=== PATIENT | female | born 1940 | race Caucasian/White ===

== ENCOUNTER 2020-01-18 12:21 | Emergency (ER) | payer MEDICARE, SELFPAY ==
[2020-01-18 12:29] VITALS: BP 176/74; PULSE 46; RESP 16; TEMP 36.6; O2SAT 97; BMI 28.9
--- NOTE | 2020-01-18 12:37 | XR_ITS ---
WS: [id number] [place] [id number] REASON FOR EXAM: fall FINDINGS: This study shows impacted surgical neck fracture of the proximal humerus. The remaining shaft of the humerus in the elbow were normal. XR/[place] [id number] IMPRESSION: Impacted fracture of the proximal right humerus surgical neck.
--- NOTE | 2020-01-18 13:38 | ED_ITS ---
Entered by Erin Miranda, acting as scribe for Jan 18, 2020 12:21 HPI - Fall General: Chief Complaint: Fall Stated Complaint: FALL WITH RIGHT SHOULDER PAIN Time Seen by Provider: 01/18/20 13:40 History of Present Illness: HPI Narrative: 79 yo female presents with fall. Pt states that she tripped over her sons dog. Pt states that she hit her head and her right arm. Pt states that she has some left hand pain as well. Associated symptoms-after fall: Denies abdominal pain, chest pain, confusion, difficulty walking, headache(s), hematuria, neck pain or vertigo Review of Systems Const: Denies: fever, chills, body aches, fatigue, malaise or night sweats Eyes: Denies: change in vision or blurry vision ENMT: Denies: throat pain, oral sores/lesions, dental pain, nasal discharge or nasal congestion Card: Denies: chest pain, palpitations, irregular heart rhythm, edema, syncope, shortness of breath on exertion, shortness of breath when lying down or leg pain with exertion Resp: Denies: shortness of breath, productive cough, non-productive cough or wheezing GI: Denies: abdominal pain, nausea, vomiting, vomiting blood, coffee grounds in vomit, difficulty swallowing, heartburn/indigestion, diarrhea, constipation, cramping, blood in stool or black tarry stool : Denies: flank pain, painful urination, urinary frequency, urinary urgency, urinary incontinence or blood in urine Musc: Reports: extremity pain, extremity swelling and joint swelling; Denies: neck pain, back pain or joint pain Skin/Breast: Denies: rash, itching or redness Neuro: Denies: headache, numbness in extremities, weakness in extremities, changes in sensation, lack of coordination, difficulty walking, frequent falls, dizziness, vertigo or confusion Psych: Denies: anxiety, depression, loss of interest, visual hallucinations, auditory hallucinations, suicidal ideation or homicidal ideation Endo: Denies: excessive urination, excessive thirst, tired all the time or cold intolerance Timur/Lymph: Denies: easy bruising, easy bleeding, petechiae, enlarged lymph nodes or tender lymph nodes PFSH ED PFSH: Medical History Bradycardia HTN (hypertension) Itching Skin rash Family History Other CAD (coronary artery disease) Diabetes Hypertension Stroke Social History Smoking and tobacco status: never smoked Alcohol intake: never Physical Exam Const: COMMON NORMALS: oriented x3 and alert GENERAL APPEARANCE: cooperative, comfortable, well kempt and well developed NUTRITIONAL APPEARANCE: not obese ORIENTATION/CONSCIOUSNESS: Yes oriented to person, Yes oriented to place and Yes oriented to time HENMT: COMMON NORMALS: normocephalic, head/scalp atraumatic, EAC's normal, TM's normal bilaterally, external nose normal, moist oral mucous membranes and oropharynx normal HEAD & SCALP: normocephalic and atraumatic NOSE: external nose normal EXTERNAL AUDITORY CANAL: EAC's normal TYMPANIC MEMBRANE: TM's normal bilaterally MOUTH: oral and palatal mucosa normal, lip normal and tongue normal THROAT: posterior oropharynx normal and tonsils normal Eye: COMMON NORMALS: PERRL, EOMs intact bilaterally, conjunctivae normal and no scleral icterus CONJUNCTIVA: Yes conjunctivae normal PUPIL: Yes PERRL Neck/C-Spine: COMMON NORMALS: full ROM, no lymphadenopathy, supple, no meningeal signs and thyroid normal THYROID: thyroid normal and asymmetrical Lymph: LYMPHATIC: no lymphadenopathy noted Resp: COMMON NORMALS: normal respiratory effort, no retractions, no use of accessory muscles and clear to auscultation bilaterally AUSCULTATION: clear to auscultation bilaterally Cardio: COMMON NORMALS: regular rate and regular rhythm RATE: regular rate RHYTHM: regular rhythm HEART SOUNDS: no murmurs GI: COMMON NORMALS: normal to inspection, nondistended, normoactive bowel sounds, soft to palpation and no hepatosplenomegaly PALPATION: Yes soft and Yes no hepatosplenomegaly : COMMON NORMALS: Yes no CVA tenderness BLADDER/KIDNEY EXAM: Yes no CVA tenderness Back/Pelvis: COMMON NORMALS: no CVA tenderness LUMBAR SPINE/LOWER BACK: Yes normal to inspection Extremity: COMMON NORMALS: no clubbing, cyanosis or edema, no calf tenderness and no pedal edema RIGHT UPPER EXTREMITY: Yes upper arm Right upper arm: Yes inspection and Yes palpation and Yes wrist LEFT UPPER EXTREMITY: Yes hand & digits OTHER: Neurovascular intact right upper arm pain with palpation of the proximal humerus with moderate amount of swelling consistent with proximal humerus fracture Neuro: COMMON NORMALS: oriented x3 SENSORIUM/ORIENTATION: Yes alert, Yes oriented to person, Yes oriented to place and Yes oriented to time MENINGEAL SIGNS: Yes no meningeal signs Psych: APPEARANCE: Yes well kempt Skin: COMMON NORMALS: no rashes or lesions noted and skin turgor normal GENERAL SKIN EXAM: no rashes or lesions noted and turgor normal Course ED course: Discussed diagnosis the patient. She has a nondisplaced proximal humerus fracture we will sling the arm pain control early follow-up with orthopedist at 7 to 10 days they will make further arrangements from there for definitive care. Vital Signs: Vital signs: Vital Signs Temperature 97.9 F 01/18/20 12:29 Pulse Rate 53 L 01/18/20 14:44 Respiratory Rate 17 01/18/20 14:44 Blood Pressure 176/74 01/18/20 12:29 Pulse Oximetry 97 01/18/20 14:44 Discharge Plan Discharge Patient Disposition: Home, Self-Care Clinical Impression: Fracture of proximal end of humerus Condition: Stable Prescriptions: New hydrocodone-acetaminophen 5-325 mg tablet 1 tab PO Q6H PRN (Reason: pain) Qty: 25 RF: 0 Zofran 4 mg tablet 4 mg PO Q6H PRN (Reason: nausea and vomiting) Qty: 15 RF: 0 No Action hydralazine 10 mg tablet 10 mg PO BID PRN (Reason: UNKNOWN) RF: 0 amlodipine 10 mg tablet 10 mg PO DAILY Qty: 90 RF: 2 spironolactone 25 mg tablet 25 mg PO DAILY RF: 0 Referrals: aTm Simpson DO [Physician] - (Right proximal humerus fracture nondisplaced) Discharge Diet: Usual diet Discharge Activity: Limit activity as instructed Discharge Date/Time: 01/18/20 14:45 Coding Level of Care Code ED Auto Body Straightener for Chg Fwd Exam Comprehensive The documentation recorded by the Ruben ronquillo Kialy, accurately reflects the service I personally performed and the decisions made by Chari pierre Curtis L, DO Jan 18, 2020 12:21
[2020-01-18 13:44] VITALS: RESP 16
[2020-01-18 13:54] VITALS: RESP 16; O2SAT 95
[2020-01-18] MEDS: morphine 4 mg/mL SDV 1 mL IVP (13:54)
[2020-01-18 14:44] VITALS: PULSE 53; RESP 17; O2SAT 97
--- NOTE | 2020-01-19 14:16 | DCPLANNER ---
works manager had message to schedule a follow up appointment for patient with ortho. works manager called ortho, spoke with Pat, gave clinic patients information. works manager was told that patients information would be printed and reviewed. Clinic will call gearcase assembler and patient with appointment information.
--- NOTE | 2020-01-20 15:41 | DCPLANNER ---
Patient has a follow up appointment scheduled for Tuesday, January 21, 2020 at 10:00. Clinic will call patient with appointment information.
--- NOTE | 2020-01-22 10:13 | DCPLANNER ---
Patient did attend appointment scheduled for 01.21.20 [address] [facility] with Dr. Pillai.
== END 2020-01-18 14:45 | disposition home or self-care (01) ==
PROVIDERS: Emergency Provider Family Medicine; Family Provider Family Medicine; PCP Family Medicine
DX: S42.211A Unspecified displaced fracture of surgical neck of right humerus, initial encounter for closed fracture (principal); I10 Essential (primary) hypertension; W01.0XXA Fall on same level from slipping, tripping and stumbling without subsequent striking against object, initial encounter
CPT/HCPCS: 12345; 73060; 96374; 96375; 99282; 99283; J2270

== ENCOUNTER 2020-01-21 13:23 | Outpatient (CLI) | payer MEDICARE, SELFPAY | END 2020-01-21 13:24 | disposition home or self-care (01) | LOC: SPT 13:23 | PROVIDERS: Family Provider Family Medicine; PCP Family Medicine; Visit Provider Specialist | DX: Z46.89 Encounter for fitting and adjustment of other specified devices (principal); S42.294D Other nondisplaced fracture of upper end of right humerus, subsequent encounter for fracture with routine healing; X58.XXXD Exposure to other specified factors, subsequent encounter | CPT/HCPCS: L3670 ==

== ENCOUNTER 2020-05-09 10:40 | Emergency (ER) | payer MEDICARE, SELFPAY ==
[2020-05-09 10:46] VITALS: BP 168/71; PULSE 50; RESP 18; TEMP 36.4; O2SAT 99; BMI 29.1
--- NOTE | 2020-05-09 11:04 | W.ED.FALL ---
HPI - Fall General: Chief Complaint: Fall Stated Complaint: FALL Time Seen by Provider: 05/09/20 10:47 History of Present Illness: HPI Narrative: Patient tripped and fell working outdoors. She struck the top of her head and has a partial-thickness frontal scalp laceration. She also has a skin tear involving most of the dorsal aspect of her right arm. Also consciousness. Patient denies any other injury. complaint: fall Fall from: standing Fall witnessed: no Place fall occurred: home Loss of consciousness: None Prolonged down time: no Symptoms prior to fall: none Context: tripped/slipped Location of injury: head Location of injury - extremities: Right: forearm Associated symptoms-after fall: Reports no associated symptoms Review of Systems General: Reports: 10 or more systems reviewed and unremarkable except in HPI and below PFSH ED PFSH: Medical History Bradycardia HTN (hypertension) Itching Skin rash Family History Other CAD (coronary artery disease) Diabetes Hypertension Stroke Social History Smoking and tobacco status: never smoked Alcohol intake: never Physical Exam Const: COMMON NORMALS: no acute distress, average body habitus, alert and well nourished EXAM LIMITATIONS: altered mental status GENERAL APPEARANCE: lethargic ORIENTATION/CONSCIOUSNESS: Yes lethargic HENMT: COMMON NORMALS: normocephalic, hearing grossly normal bilaterally, external ears normal, EAC's normal, TM's normal bilaterally, Normal external nose present, Normal nasal mucous membranes and turbinates present, moist oral mucous membranes, oropharynx normal, dentition normal and gingiva normal HEAD & SCALP: normocephalic and laceration (frontal scalp) NOSE: Normal external nose present and Normal nasal mucous membranes and turbinates present EXTERNAL EAR: Yes external ears normal EXTERNAL AUDITORY CANAL: EAC's normal TYMPANIC MEMBRANE: TM's normal bilaterally Eye: COMMON NORMALS: Equal, round and reactive pupils present, EOMs intact bilaterally, conjunctivae normal, no scleral icterus, no papilledema, normal visual sweeney by confrontation and fundi normal bilaterally CONJUNCTIVA: Yes conjunctivae normal PUPIL: Yes Equal, round and reactive pupils present DIRECT OPHTHALMOSCOPY: Yes no papilledema and Yes fundi normal bilaterally Neck/C-Spine: COMMON NORMALS: full ROM, no lymphadenopathy, supple, no meningeal signs, no JVD, Thyroid normal and No carotid bruits THYROID: Thyroid normal Chest: COMMONS NORMALS: normal inspection of the chest and normal palpation of entire chest wall Resp: COMMON NORMALS: normal respiratory effort, No retractions, No use of accessory muscles, clear to auscultation bilaterally and percussion normal AUSCULTATION: clear to auscultation bilaterally PERCUSSION: percussion normal Cardio: COMMON NORMALS: no JVD, regular rate, regular rhythm, S1 normal heart sound present, S2 normal heart sound present, No gallops present (Cardio), No clicks present (Cardio), No murmurs present (Cardio), No rub (Cardio) and Peripheral pulses 2+ throughout RATE: regular rate RHYTHM: regular rhythm HEART SOUNDS: S1 normal heart sound present and S2 normal heart sound present PERIPHERAL PULSES: Peripheral pulses 2+ throughout GI: COMMON NORMALS: Normal to inspection, nondistended, normoactive bowel sounds present, Soft to palpation, non-tender, No hepatosplenomegaly present, no masses and no bruits PALPATION: Yes Soft to palpation and Yes No hepatosplenomegaly present : COMMON NORMALS: Yes normal external appearance Back/Pelvis: COMMON NORMALS: thoracic and lumbar spine normal to inspection, no thoracic nor lumbar tenderness, thoraco-lumbar ROM normal and straight leg raise negative bilaterally Extremity: COMMON NORMALS: normal to inspection, full ROM, capillary refill normal, no joint enlargement, no clubbing, cyanosis or edema, no calf tenderness and no pedal edema Neuro: SENSORIUM/ORIENTATION: Yes alert, Yes lethargic and Yes somnolent MENINGEAL SIGNS: Yes no meningeal signs Skin: COMMON NORMALS: no rashes or lesions noted, no wounds, no jaundice and no mottling GENERAL SKIN EXAM: no rashes or lesions noted Procedures Laceration Laceration 1: Site: scalp Size (cm): 3 Description: linear Depth: simple, single layer Skin layer closed with: other (four navi) Course Vital Signs: Vital signs: Vital Signs Temperature 97.5 F L 05/09/20 10:46 Pulse Rate 50 L 05/09/20 10:46 Respiratory Rate 18 05/09/20 10:46 Blood Pressure 168/71 05/09/20 10:46 Pulse Oximetry 99 05/09/20 10:46 MDM - Fall MDM Narrative: Medical decision making narrative: Partial-thickness laceration to the top of the scalp was repaired with surgical navi. The edges of the devitalized tissue of the skin tear the patient's right arm Was removed with sterile scissors. Steri-Strips and sterile dressing are applied. Discharge Plan Discharge Patient Disposition: Home, Self-Care Clinical Impression: Fall Qualifiers: Encounter type: initial encounter Qualified Code(s): W19.XXXA - Unspecified fall, initial encounter Laceration of scalp Qualifiers: Encounter type: initial encounter Qualified Code(s): S01.01XA - Laceration without foreign body of scalp, initial encounter Skin tear of right forearm without complication Qualifiers: Encounter type: initial encounter Qualified Code(s): S51.811A - Laceration without foreign body of right forearm, initial encounter Condition: Stable Prescriptions: New Bactrim DS 800-160 mg tablet 1 tab PO BID 10 Days Qty: 20 RF: 0 No Action hydralazine 10 mg tablet 10 mg PO BID PRN (Reason: UNKNOWN) RF: 0 amlodipine 10 mg tablet 10 mg PO DAILY Qty: 90 RF: 2 (DME) Shoulder Immobilizer Qty: 1 RF: 0 spironolactone 25 mg tablet 25 mg PO DAILY RF: 0 hydrocodone-acetaminophen 5-325 mg tablet 1 tab PO Q6H PRN (Reason: pain) Qty: 25 RF: 0 Zofran 4 mg tablet 4 mg PO Q6H PRN (Reason: nausea and vomiting) Qty: 15 RF: 0 Discharge Orders: Discharge Order (Routine); Ordered 05/09/20 Ordered By: Rigoberto Delgado Referrals: Vashti Osorio MD [Primary Care Provider] - Coding Level of Care Code ED Headmaster/Mistress for Chg Fwd Exam Comprehensive
== END 2020-05-09 11:41 | disposition home or self-care (01) ==
LOC: ER 11:20
PROVIDERS: Emergency Provider Family Medicine; Family Provider Family Medicine; PCP Family Medicine
DX: S01.01XA Laceration without foreign body of scalp, initial encounter (principal); S51.811A Laceration without foreign body of right forearm, initial encounter; W01.0XXA Fall on same level from slipping, tripping and stumbling without subsequent striking against object, initial encounter; I10 Essential (primary) hypertension
CPT/HCPCS: 12002; 12345; 99281; 99282

== ENCOUNTER → 2020-06-07 13:17 | Outpatient (BNVA) | payer MEDICARE, SELFPAY | PROVIDERS: Family Provider Family Medicine; PCP Family Medicine; Visit Provider Internal Medicine | DX: Z11.59 Encounter for screening for other viral diseases (principal) | CPT/HCPCS: 87635 ==

== ENCOUNTER 2020-06-09 13:12 | Observation (INO) | payer MEDICARE, SELFPAY ==
[2020-06-08 11:29] VITALS: BMI 28.2
[2020-06-09] VITALS (21 sets, daily range): BP systolic 138–178; BP diastolic 60–89; PULSE 51–66; RESP 14–21; TEMP 36.3–36.8; O2SAT 92–100
--- NOTE | 2020-06-09 | SCC_ITS ---
Procedure Done: Dual-chamber pacemaker implantation 59.3 seconds of fluoroscopic guidance, for a cumulative dose of 8.26 mGy, was provided to Dr. Oleary by the radiology department. C-arm images of the chest were saved for the patient's permanent record. [facility]
--- NOTE | 2020-06-09 09:09 | XR_ITS ---
WS: [id number] CHEST XRAY TECHNIQUE: Portable chest. CLINICAL INFORMATION: Preop for pacemaker implantation COMPARISON: None. FINDINGS: Heart: Normal cardiac silhouette. Lungs: Lungs are clear. No consolidation or pleural effusion. Mild chronic emphysematous changes. Bones: Thoracolumbar curve convex right. XR/XR chest 1V portable [id number] IMPRESSION: Chest unremarkable for preoperative purposes
--- NOTE | 2020-06-09 09:32 | ANES.PREANE2 ---
Pre-Anesthetic Assessment Pre-Anesthetic Assessment: Height/Weight: Height 1.68 m Weight 79.379 kg Temp Pulse Resp BP Pulse Ox 97.4 F L 51 L 18 158/77 97 06/09/20 09:17 06/09/20 09:17 06/09/20 09:17 06/09/20 09:17 06/09/20 09:17 Proposed Procedure: Operation Date: 06/09/20 10:20 Proposed Procedures p Pacemaker Insertion(Not Applicable) - Pascual Oleary MD Last intake: Intake Last Liquid Date 06/08/20 Last Liquid Time 19:00 Last Solid Date 06/08/20 Last Solid Time 19:00 Social: Social History: No alcohol and No tobacco Exam: Pre-Anes Outpt Exam: alert, oriented x 3, clear to auscultation bilaterally and regular rate & rhythm Airway: Submandibular: WNL Cervical ROM: WNL MP: 1 Dentition: Partials (upper) History/ROS: No significant history except as noted Pulmonary: Pulmonary: LUKE CV/HEM: CV/HEM: Arrythmia and HTN : : None reported Hepatic: Hepatic: None reported GI: GI: GERD (occ) Metabolic: Metabolic: Morbid obesity Musc/skel: Musc/skel: OA/DJD Neuropsych: Neuropsych: None reported Anesthetic Plan: ASA status: 3 Anesthesia: Anesthesia Evaluation and MAC Risk of > 500 ml blood loss (7ml/kg in children): No PFSH Anesthesia PFSH: Medical History Bradycardia HTN (hypertension) Itching Skin rash Family History Other CAD (coronary artery disease) Diabetes Hypertension Stroke Social History Smoking and tobacco status: never smoked Alcohol intake: never Data Anesthesia Cardiac Studies: No Data to Display
[2020-06-09] MEDS: sodium chloride 0.9% 1,000 ML 30 ML IV (09:43)
[2020-06-09 10:04] LABS: Add Urine Culture? No; Add Urine Microscopic? YES; Bacteria Urine 1+; Bilirubin Urine Neg (NEGATIVE); Blood Urine Neg (Negative); Glucose Urine UA Norm (Normal); Ketones Urine Negative (Negative); Leukocyte Esterase Urine Trace (Negative); Mucus Urine TRACE; Nitrate Urine Negative (Negative); Protein Urine Neg (Negative); RBC Urine RARE /hpf (0-2); Specific Gravity, Urine 1.015 (1.005-1.030); Squamous Epithelial Cell Urine 0-4 (0-5); Urine Appearance Clear (CLEAR); Urine Color Yellow (Yellow); Urobilinogen Urine Norm (Negative)
[2020-06-09 10:12] LABS: Basophils # 0.1 10^3/uL (0.0-0.1); Basophils % 0.9 %; Eosinophils # 0.5 10^3/uL (0.0-0.8); Eosinophils % 6.4 %; Hematocrit 42.1 % (37.0-47.0); Hemoglobin 13.7 g/dL (11.5-15.3); Lymphocytes # 1.5 10^3/uL (0.8-4.8); Lymphocytes % 20.3 %; Mean Corpuscular HGB Conc 32.5 g/dL (30.0-36.0); Mean Corpuscular Hemoglobin 30.9 pg (28.0-34.0); Mean Corpuscular Volume 94.8 fL (81-99); Mean Platelet Volume 9.3 fL (7.4-10.4); Monocytes # 0.4 10^3/uL (0.2-0.9); Monocytes % 5.7 %; Neutrophils # 4.99 10^3/uL (1.8-7.7); Neutrophils % 66.3 %; Nucleated Red Blood Cells % 0 %; Platelet Count 206 10^3/cmm (130-400); Red Blood Count 4.44 10^6/uL (4.1-5.3); White Blood Count 7.5 10^3/uL (4.0-10.0)
--- NOTE | 2020-06-09 10:12 | SC_ITS ---
WS: [id number] INTRAOPERATIVE TECHNIQUE: 2 Spot fluoroscopic images for intraoperative purposes. FLUOROSCOPY TIME: 59.3 seconds CLINICAL INFORMATION: intra-op COMPARISON: None. FINDINGS: Fluoroscopy used for cardiac intervention SC/C-arm FL for Pacemaker IMPRESSION: Images obtained for intraoperative purposes.
[2020-06-09 10:17] LABS: INR 0.94 (0.8-1.2)
[2020-06-09 10:23] LABS: Anion Gap 19.2 (5-19); Blood Urea Nitrogen 26 mg/dL (8-23); Calcium 9.9 mg/dL (8.5-10.5); Carbon Dioxide 21 mmol/L (22-29); Chloride 105 mmol/L (98-107); Glucose 96 mg/dL (65-115); Osmolality Calculated 289 mOsm/kg (285-295); Potassium 4.2 mmol/L (3.5-5.1); Sodium 141 mmol/L (136-145)
--- NOTE | 2020-06-09 10:35 | PM.OPSURHP ---
Providers/Chief Complaint Admitting Physician: Anirudh Primary Care Provider: Vashti Osorio MD Chief Complaint: AV block History of Present Illness Lisa Vargas is a 79 year old female who was referred to our service by Dr. Cat for planned dual-chamber pacemaker implantation for profound, highly symptomatic, and refractory bradycardia with documented heart rates into the upper 20s as well as periods of prolonged pauses. She has had a 21-day event recorder in place which has documented numerous events. She was last seen by Dr. Cat on May 24. She has a history of progressive shortness of breath intermittently as well as episodes of falling, which may be presyncopal events. Review of Systems Const: Denies: fever(s), chills, change in appetite, change in weight, fatigue or night sweats Eyes: Denies: change in vision or blurry vision ENMT: Denies: odynophagia or hoarseness Card: Denies: chest pain, palpitations, irregular heart rhythm or edema Resp: Denies: dyspnea or productive cough GI: Denies: abdominal pain, nausea, vomiting, dysphagia, heartburn or change in bowel habits : Denies: dysuria, urinary frequency, urinary urgency or urinary hesitancy Musc: Denies: extremity pain or extremity swelling Skin/Breast: Denies: rash Neuro: Reports: weakness in extremities, frequent falls and dizziness; Denies: headache(s), numbness in extremities or sensory changes Psych: Denies: anxiety, depression or change in appetite Endo: Denies: polyuria, polydipsia or cold intolerance Timur/Lymph: Denies: easy bruising, easy bleeding, petechiae or enlarged lymph nodes Medications/Allergies Home Medications Medication Instructions Recorded Confirmed Last Taken Type amlodipine 10 mg tablet 10 mg PO DAILY #90 tab 11/26/19 06/09/20 06/09/20 Rx hydralazine 10 mg tablet 10 mg PO BID PRN 11/26/19 06/09/20 06/09/20 History spironolactone 25 mg PO DAILY 01/18/20 06/09/20 01/18/20 History Allergies Allergy/AdvReac Type Severity Reaction Status Date / Time latex Allergy ALGY-Redness Verified 06/08/20 11:26 of Skin PFSH PFSH: Medical History Bradycardia HTN (hypertension) Itching Skin rash Family History Other CAD (coronary artery disease) Diabetes Hypertension Stroke Social History Smoking and tobacco status: never smoked Alcohol intake: never Vital Signs Vitals Signs: Last Vital Signs Temp 97.4 F L 06/09/20 09:17 Pulse 51 L 06/09/20 09:17 Resp 18 06/09/20 09:17 BP 158/77 06/09/20 09:17 Pulse Ox 97 06/09/20 09:17 Weight: Weight last 48 hrs Weight 175 lb Physical Exam Neck/C-Spine: COMMON NORMALS: full ROM, no lymphadenopathy and no JVD Chest: COMMONS NORMALS: normal inspection of the chest (External rhythm monitoring device was removed. Skin beneath is intact without reaction.) Resp: COMMON NORMALS: normal respiratory effort and No use of accessory muscles EFFORT & INSPECTION: Yes able to speak in complete sentences and Yes symmetric chest movement AUSCULTATION: clear to auscultation bilaterally Cardio: COMMON NORMALS: S1 normal heart sound present, No gallops present (Cardio) and No murmurs present (Cardio); negative for regular rate RATE: bradycardic PERIPHERAL PULSES: radial pulses present positive bilateral 2+ Extremity: COMMON NORMALS: no clubbing, cyanosis or edema A&P Assessment and plan (1) Bradycardia: Highly symptomatic and refractory bradycardia consistent with sick sinus syndrome. Dual-chamber pacemaker implantation been recommended by Dr. Cat. Rationale was carefully discussed with Ms. Vargas and her . Details the risk of the procedure carefully and frankly reviewed. Potential risk for infection, major bleeding, migration of the leads requiring revision, pneumothorax requiring chest tube, and prolonged need for monitoring were frankly discussed. Proper consents have been provided for review and signature. Status: Acute Coding Level of Care Code Acute Nursing Agency Manager for [facility] F[facility] Diagnoses Bradycardia R00.1
[2020-06-09] MEDS: ceFAZolin 1,000 mg SDV 1000 MG IRRIGATION (11:52)
[2020-06-09] MEDS: lidocaine 1% INJ 20 mL SUBCUT (12:14)
--- NOTE | 2020-06-09 12:52 | PM.OP ---
Operative Report Date of procedure: June 09, 2020 Pre-op Diagnosis: Highly symptomatic and refractory bradycardia; sick sinus syndrome Post-op diagnosis: same Procedure Done: Dual-chamber pacemaker implantation Pathology: none sent Surgeon: Pascual Oleary Anesthesia: MAC and Local (10 cc 1% lidocaine infiltrated locally) Complications: None: Post procedure chest x-ray pending Condition: stable Disposition: PACU Brief History: 79-year-old female with refractory bradycardia and history of possible syncope with frequent falls. Dr. Cat is recommended dual-chamber pacemaker implantation. Details risk procedure carefully and frankly discussed. Proper consents have been reviewed and signed. Procedure: Procedure: Ms. Vargas was taken to the OR suite and placed in the supine position over a shoulder roll. She received conscious sedation with continuous anesthesia monitoring by. Her entire chest was sterilely prepped and draped. 1% lidocaine was infiltrated in the left subclavicular region. While in Trendelenburg position, utilizing modified seldinger technique, 2 guidewires were placed in the left subclavian vein. This was confirmed in position by fluoroscopy. Next, after infiltration with lidocaine, a subcutaneous pocket was created beginning from the exit point of the guidewire and extending laterally and inferiorly. Cautery was utilized to create the pocket just above the pectoralis musculature. Hemostasis was confirmed. An antibiotic-soaked sponge was placed in the wound. A dilator and tear-away sheath was placed over the first guidewire and advanced under fluoroscopy. Guidewire and dilator were removed. Next using a combination of curved and straight stylettes, the right ventricular lead was placed in position by fluoroscopy. The distal screw was extended. Interrogation was then performed confirming appropriate parameters. The tear-away sheath was then removed and the ventricular lead was sewn to the floor of the subcutaneous pocket. In a similar fashion dilator and tear-away sheath was placed over the 2nd guide wire and advanced under fluoroscopy. Guidewire and dilator were removed. Straight and curved stylettes were used to position the right atrial lead with fluoroscopy. Distal screw was extended. Interrogation was then performed. Tear-away sheath was then removed. Atrial lead was secured to the floor of the subcutaneous pocket. Pocket was irrigated with antibiotic solution and hemostasis again confirmed. Pacing generator was brought into the field, and after confirmation of hemostasis in the subcutaneous pocket, the leads were connected to the generator with appropriate capture. The entire system was interrogated by fluoroscopy. Leads and generator were secured in the pocket. Sponge and needle count was correct. The wound was then closed in 2 layers of 3-0 Vicryl suture. Skin was reapproximated in a subcuticular manner with 4-0 Monocryl suture. A pressure dressing was applied. The left arm was placed in a sling. The patient had equal breath sounds bilaterally. She was then transferred to the PACU, where chest x-ray is currently pending. I did auto travel counselor with her at the completion of the procedure. Following are the specifics of this system: Right ventricular lead is 52 cm and model 5076. Serial number [id number] Right atrial lead is 45 cm and is model 5076. Serial number [id number]. Ventricular lead had sensing of 13.6 mV with an impedance of 931 ohms. Threshold was 0.5 V Atrial lead had sensing of 1.6 mV with an impedance of 456 ohms. Threshold was 0.75 V. [employer] generator: Model # [id number] Serial #[id number]
--- NOTE | 2020-06-09 13:30 | PC.NURSE ---
Patient arrived to floor from PACU A&O. Patient ambulated to bed from [facility] with SBA. Patient denies any pain at this time. Immobilizer in place, incision asymptomatic. Patient oriented to room and call light. Nurse to continue to monitor.
[2020-06-09] MEDS: sodium chloride 0.9% 1,000 ML 75 ML IV (13:44)
--- NOTE | 2020-06-09 14:00 | XRR_ITS ---
PROCEDURE INFORMATION: Exam: XR Chest, 1 View Exam date and time: 06/09/2020 2:06 PM Age: 79 years old Clinical indication: Device placement; Cardiac pacemaker lead placement or adjustment; Prior surgery; Surgery date: Post-operative (0-2 days); Additional info: Post op pacemaker TECHNIQUE: Imaging protocol: XR of the chest Views: 1 view. COMPARISON: CR XR chest 1V portable [id number] 06/09/2020 9:27 AM FINDINGS: Tubes, catheters and devices: There is a dual lead pacemaker. The leads are intact where visualized. Lungs: No acute pneumonia or edema. Pleural space: Unremarkable. No pleural effusion. No pneumothorax. Heart/Mediastinum: Unremarkable. No cardiomegaly. Bones/joints: Unremarkable. XR/XR chest 1V portable [id number] IMPRESSION: There are no acute concerning abnormalities.
[2020-06-10 00:18] VITALS: BP 155/55; PULSE 60; RESP 19; TEMP 37.1; O2SAT 95
[2020-06-10 04:00] VITALS: BP 164/65; PULSE 60; RESP 17; TEMP 36.8; O2SAT 98
[2020-06-10] MEDS: sodium chloride 0.9% 1,000 ML 75 ML IV (04:29)
--- NOTE | 2020-06-10 06:00 | ECG_ITS ---
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 Measurements Intervals [place] Rate: 60 P: 142 SC: 225 QRS: -21 QRSD: 113 T: 69 QT: 398 QTc: 398 Interpretive Statements ELECTRONIC ATRIAL PACEMAKER LOW QRS VOLTAGE IN PRECORDIAL LEADS [QRS DEFLECTION < 1.0 mV IN CHEST LEADS] PATTERN CONSISTENT WITH PULMONARY DISEASE MODERATE INTRAVENTRICULAR CONDUCTION DELAY [105+ ms QRS DURATION, 80+ ms Q/S IN V1/V2, NO Q AND 60+ ms R IN I/aVL/V5/V6] No previous ECG available for comparison Electronically Signed On 06-11-2020 16:09:39 CDT by Nathan Patterson M.D. [id number]
--- NOTE | 2020-06-10 06:00 | XR_ITS ---
WS: [id number] CHEST XRAY TECHNIQUE: Portable chest. CLINICAL INFORMATION: Post permanent pacemaker placement; visualize lead tip COMPARISON: June 09, 2020 FINDINGS: Heart: Normal cardiac silhouette. Cardiac pacer. Lungs: Lungs are clear. No consolidation or pleural effusion. Mild chronic emphysematous changes. Bones: Normal visualized bony structures. XR/XR chest 1V [id number] IMPRESSION: Cardiac pacer. No pneumothorax. No acute chest findings.
[2020-06-10 07:59] VITALS: BP 157/68; PULSE 60; RESP 20; TEMP 36.7; O2SAT 98
--- NOTE | 2020-06-10 09:40 | PM.DCS ---
Discharge Providers Date of Admission: 06/09/20 13:12 Date of Discharge: June 10, 2020 Attending Provider at Admission: Pascual Oleary MD Attending Provider at Discharge: Pascual Oleary MD Primary Care Provider: Vashti Osorio MD Diagnoses at Discharge Discharge Diagnosis (1) Bradycardia: Status: Acute Reason for Visit Reason for Visit: AV block Hospital Course Hospital Course: Ms. Vargas is a 80-year-old female admitted for highly symptomatic and refractory bradycardia with documented prolonged sinus pauses consistent with sick sinus syndrome. She was carefully evaluated by cardiology and referred to consider for dual-chamber pacemaker implantation. She was elected admitted yesterday on June 09 underwent dual-chamber pacemaker implantation. Postop day, she is convalesced in cardiac stepdown unit where she remained stable. Device interrogation this morning revealed appropriate functioning. Surgical site is clean and dry. Minimal swelling. Minimal discomfort. She is eager for discharge to home. She be discharged today in stable condition. Physical Exam Chest: COMMONS NORMALS: normal inspection of the chest (Incision line clean and dry. Minimal tenderness. No ecchymosis or swelling.) Discharge Data Data Completed and Pending: Completed Studies During Hospitalization Category Date Time Status CXRP [XR chest 1V portable [id number]] R outine Exams 06/09/20 14:00 Completed XR chest 1V [id number] Routine Exams 06/10/20 06:00 Completed XR chest 1V klaudia ble [id number] Routine Exams 06/09/20 09:09 Completed Labs from last 24 hours 06/09/20 06/09/20 06/09/20 10:02 10:02 10:02 WBC 7.5 RBC 4.44 Hgb 13.7 Hct 42.1 MCV 94.8 MCH 30.9 MCHC 32.5 RDW 13.0 Plt Count 206 MPV 9.3 Neut % (Auto) 66.3 Lymph % (Auto) 20.3 [place] % (Auto) 5.7 Eos % (Auto) 6.4 Baso % (Auto) 0.9 Neut # (Auto) 4.99 Lymph # (Auto) 1.5 [place] # (Auto) 0.4 Eos # (Auto) 0.5 Baso # (Auto) 0.1 Nucleated RBC % (a uto) 0 Nucleated RBCs # 0.0 PT 12.90 INR 0.94 Sodium 141 Potassium 4.2 Chloride 105 Carbon Dioxide 21 L Anion Gap 19.2 H BUN 26 H Creatinine 1.0 H GFR Calculation Not Reportable Glucose 96 Calculated Osmolal ity 289 Calcium 9.9 Urine Color Urine Appearance Urine pH Ur Specific Gravit y Urine Protein Urine Glucose (UA) Urine Ketones Urine Blood Urine Nitrate Urine Bilirubin Urine Urobilinogen Ur Leukocyte Kymberly ase Urine RBC Urine WBC Ur Squamous Epith Cells Amorphous Sediment Urine Bacteria Urine Mucus 06/09/20 09:24 WBC RBC Hgb Hct MCV MCH MCHC RDW Plt Count MPV Neut % (Auto) Lymph % (Auto) [place] % (Auto) Eos % (Auto) Baso % (Auto) Neut # (Auto) Lymph # (Auto) [place] # (Auto) Eos # (Auto) Baso # (Auto) Nucleated RBC % (a uto) Nucleated RBCs # PT INR Sodium Potassium Chloride Carbon Dioxide Anion Gap BUN Creatinine GFR Calculation Glucose Calculated Osmolal ity Calcium Urine Color Yellow Urine Appearance Clear Urine pH 6.0 Ur Specific Gravit y 1.015 Urine Protein Neg Urine Glucose (UA) Norm Urine Ketones Negative Urine Blood Neg Urine Nitrate Negative Urine Bilirubin Neg Urine Urobilinogen Norm Ur Leukocyte Kymberly ase Trace H Urine RBC Rare Urine WBC 5-10 H Ur Squamous Epith Cells 0-4 H Amorphous Sediment Not Reportable Urine Bacteria 1+ H Urine Mucus Trace Vitals: Last Vital Signs Temp 98.0 F 06/10/20 07:59 Pulse 60 06/10/20 07:59 Resp 20 H 06/10/20 07:59 BP 157/68 06/10/20 07:59 Pulse Ox 98 06/10/20 07:59 Discharge Plan Discharge Patient Disposition: Home Condition: Stable Prescriptions: New hydrocodone-acetaminophen 5-325 mg Tablet 1 tab PO Q6H PRN (Reason: Moderate Pain) Qty: 10 RF: 0 Continued hydralazine 10 mg tablet 10 mg PO BID PRN (Reason: UNKNOWN) RF: 0 amlodipine 10 mg tablet 10 mg PO DAILY Qty: 90 RF: 2 spironolactone 25 mg tablet 25 mg PO DAILY RF: 0 Discharge Orders: Discharge Order (Routine); Ordered 06/10/20 Ordered By: Pascual Oleary Referrals: [facility] [Provider Group] - 06/18/20 (Pacemaker clinic) Discharge Diet: Usual diet Discharge Activity: Limit activity as instructed Activity Restrictions/Additional Instructions: May remove bandage in 2 days May begin daily showers in 2 days No swimming or tub baths x 2 weeks No ointments on incision Report drainage, redness, heat, increased pain, or swelling to clinic Do not lift left hand above eye level for 5 days Discharge Attestations Time Spent in Discharge Care*: less than 30 min Specific Discharge Activities: Specific discharge activities: educating patient, discussing with case worker/social workers/dc planners, documenting/other paperwork and evaluating patient/reviewing data Status at Discharge: Cognitive status at discharge: cognitively intact, Functional status at discharge: independent ambulation Overall status at discharge: patient is back to baseline Quality Metrics Clinical Quality Measures During this hospital stay, did patient experience: None Coding Level of Care Code Acute Taping Machine Operator for Anna Howe Diagnoses Bradycardia R00.1
--- NOTE | 2020-06-10 09:43 | ANE.PACU2 ---
Inpatient post-anesthesia follow up: Airway intact: Yes Vital signs: Temperature 98.0 F Pulse Rate 60 Respiratory Rate 20 Blood Pressure 157/68 Pulse Oximetry 98 Oxygen Delivery Me thod [ Room Air Current Rate & Del karyna] Oxygen Delivery Me thod Room Air Oxygen Flow Rate Fraction of Inspir ed Oxygen Hydration adequate: Yes Nausea and vomiting: No Pain level: 1 Mental status: Baseline
[2020-06-10 09:58] VITALS: BP 157/68; PULSE 60; RESP 20; TEMP 36.7; O2SAT 98
--- NOTE | 2020-06-10 10:52 | PC.NURSE ---
Patient discharged home at this time. Discharge instructions provided and explained to patient. Patient verbalizes understanding of all restrictions post pacemaker placement. IV discontinued cath intact min bleeding noted dressing applied patient educated on s/s of infection patient verbalized understanding. patient assisted to wheel chair and accompanied by staff to private vehicle all belongings and discharge instructions in hands. patient alert, oriented and in stable condition.
== END 2020-06-10 10:45 | disposition home or self-care (01) ==
LOC: CSU 13:31
PROVIDERS: Admitting Provider Thoracic Surgery (Cardiothoracic Vascular Surgery); PCP Family Medicine; Visit Provider Thoracic Surgery (Cardiothoracic Vascular Surgery)
PROC: (CPT 33208; principal; 2020-06-09 10:20)
DX: I49.5 Sick sinus syndrome (principal); I10 Essential (primary) hypertension; E66.01 Morbid (severe) obesity due to excess calories; Z68.28 Body mass index [BMI] 28.0-28.9, adult; M19.90 Unspecified osteoarthritis, unspecified site; Z82.49 Family history of ischemic heart disease and other diseases of the circulatory system; Z83.3 Family history of diabetes mellitus
CPT/HCPCS: 33208; 12345; 36415; 71045; 76000; 80048; 81001; 81003; 85025; 85610; 93005; 96361; 96365; 97165; C1779; C1786; G0378; J0690; J2704; J3010; J7030

== ENCOUNTER → 2022-04-28 10:12 | Outpatient (BNVA) | payer MEDICARE, SELFPAY | PROVIDERS: PCP Nurse Practitioner Family | DX: Z45.010 Encounter for checking and testing of cardiac pacemaker pulse generator [battery] (principal) | CPT/HCPCS: 93280 ==

== ENCOUNTER → 2022-10-12 11:24 | Outpatient (BNVA) | payer MEDICARE, SELFPAY | PROVIDERS: PCP Nurse Practitioner Family; Visit Provider Internal Medicine Cardiovascular Disease | DX: I10 Essential (primary) hypertension (principal); R00.1 Bradycardia, unspecified; Z95.0 Presence of cardiac pacemaker | CPT/HCPCS: 99214 ==

== ENCOUNTER → 2023-09-21 11:00 | Outpatient (BNVA) | payer MEDICARE, SELFPAY | PROVIDERS: PCP Nurse Practitioner Family; Visit Provider Internal Medicine Cardiovascular Disease | DX: Z45.010 Encounter for checking and testing of cardiac pacemaker pulse generator [battery] (principal) | CPT/HCPCS: 93296 ==

== ENCOUNTER → 2023-10-18 10:37 | Outpatient (BNVA) | payer MEDICARE, SELFPAY | PROVIDERS: PCP Nurse Practitioner Family; Visit Provider Internal Medicine Cardiovascular Disease | DX: I10 Essential (primary) hypertension (principal); R00.1 Bradycardia, unspecified; Z95.0 Presence of cardiac pacemaker | CPT/HCPCS: 99214 ==

== ENCOUNTER → 2023-12-05 15:05 | Outpatient (BNVA) | payer MEDICARE, SELFPAY | PROVIDERS: PCP Nurse Practitioner Family; Visit Provider Internal Medicine | DX: Z45.010 Encounter for checking and testing of cardiac pacemaker pulse generator [battery] (principal) | CPT/HCPCS: 93296 ==

== ENCOUNTER → 2024-03-10 11:54 | Outpatient (BNVA) | payer MEDICARE, SELFPAY | PROVIDERS: PCP Nurse Practitioner Family; Visit Provider Internal Medicine | DX: Z45.010 Encounter for checking and testing of cardiac pacemaker pulse generator [battery] (principal) | CPT/HCPCS: 93296 ==

== ENCOUNTER → 2024-10-20 13:40 | Outpatient (BNVA) | payer MEDICARE, SELFPAY | PROVIDERS: PCP Nurse Practitioner Family; Visit Provider Internal Medicine Cardiovascular Disease | DX: R00.1 Bradycardia, unspecified (principal); Z95.0 Presence of cardiac pacemaker | CPT/HCPCS: 99213 ==

== ENCOUNTER → 2025-04-27 10:05 | Outpatient (BNVA) | payer MEDICARE, SELFPAY | PROVIDERS: PCP Nurse Practitioner Family; Visit Provider Nurse Practitioner Family | DX: I10 Essential (primary) hypertension (principal); Z95.0 Presence of cardiac pacemaker | CPT/HCPCS: 99214 ==

== ENCOUNTER → 2025-10-19 12:21 | Outpatient (BNVA) | payer MEDICARE, SELFPAY | PROVIDERS: PCP Nurse Practitioner Family; Visit Provider Internal Medicine Cardiovascular Disease | DX: R00.1 Bradycardia, unspecified (principal); I10 Essential (primary) hypertension; E78.5 Hyperlipidemia, unspecified; Z95.0 Presence of cardiac pacemaker | CPT/HCPCS: 99214 ==